=== PATIENT | female | born 1945 | race Caucasian/White ===

== ENCOUNTER 2018-05-01 11:39 | Outpatient (CLI) | payer MEDICARE, MEDICAID | END 2018-05-01 11:40 | disposition home or self-care (01) | LOC: BICMAMMO 11:39 | PROVIDERS: ATTEND Family Medicine | DX: Z12.31 Encounter for screening mammogram for malignant neoplasm of breast (principal); R92.1 Mammographic calcification found on diagnostic imaging of breast | CPT/HCPCS: 77063; 77067 ==

== ENCOUNTER 2018-07-13 10:29 | Outpatient (CLI) | payer MEDICARE, MEDICAID | END 2018-07-13 10:30 | disposition home or self-care (01) | LOC: RAD 10:29 → BICRAD 10:30 | PROVIDERS: ATTEND Family Medicine | DX: M25.561 Pain in right knee (principal); M25.562 Pain in left knee; E11.8 Type 2 diabetes mellitus with unspecified complications; R93.7 Abnormal findings on diagnostic imaging of other parts of musculoskeletal system | CPT/HCPCS: 36415; 80053; 80061; 82043; 83036; 85025 ==

== ENCOUNTER 2018-12-10 09:44 | Outpatient (CLI) | payer MEDICARE, MEDICAID ==
--- NOTE | 2018-12-10 11:10 | ULT ---
BILATERAL RENAL ULTRASOUND: History: 73-year-old female with UTI and hematuria. FINDINGS: The right kidney measures 9.7 cm in the length and the left kidney measures 10.8 cm in length. Cortic al echogenicity and thickness is normal. No focal mass, hydronephrosis, or shadowing calculus is seen . The urinary bladder is well distended and normal. IMPRESSION: Normal exam. POS: C
== END 2018-12-10 09:45 | disposition home or self-care (01) ==
LOC: BICULT 09:44
PROVIDERS: ATTEND Family Medicine
DX: R31.21 Asymptomatic microscopic hematuria (principal)
CPT/HCPCS: 76770

== ENCOUNTER 2019-04-08 08:34 | Outpatient (CLI) | payer MEDICARE, MEDICAID ==
--- NOTE | 2019-04-08 12:12 | CT ---
CT CHEST WITHOUT CONTRAST: Date: 04/08/19 COMPARISON: None. HISTORY: History of smoking for over 30 years. Cough and upper respiratory issues. TECHNIQUE: Multiple contiguous axial images were obtained in a CT of the chest without contrast per low dose [facility] screening protocol. Sagittal and coronal MIP reformats were performed. FINDINGS: There is a calcified granuloma in the inferior aspect of the right upper lobe. A 4 mm area of nodular ity extending to the periphery is seen on image 150 of 230 in the right middle lobe. An area of nodul arity measuring 3 mm in size is also seen in the right middle lobe on image 159 of 230. A 6 mm nodule is seen in the right lower lobe on image 165 of 230. There is a 6 mm nodule in the left lower lobe on image 150 of 230. A 2 mm nodule is seen in the lingu la on image 103 of 230. Emphysematous changes are seen in the lungs. No pneumothorax or pleural effus ion seen. The heart is normal in size4. Calcifications are seen in the coronal arteries and aorta. No hilar or mediastinal lymphadenopathy are seen. There are calcified right hilar lymph nodes. Degenerative changes are seen in the spine. There are calcifications in the spleen and liver from doug or granulomatous disease. The other visualized subdiaphragmatic structures are unremarkable. The ches t wall soft tissues are unremarkable. IMPRESSION: Scattered pulmonary nodules. There are 6 mm nodules in the bilateral lower lobes. Lung-RADS Category 2 - Benign findings. Annual continued low dose CT is recommended for continued screening. POS: TPC
== END 2019-04-08 08:35 | disposition home or self-care (01) ==
LOC: CT 08:34
PROVIDERS: ATTEND Family Medicine
DX: Z87.891 Personal history of nicotine dependence (principal); R91.8 Other nonspecific abnormal finding of lung field
CPT/HCPCS: G0297

== ENCOUNTER 2019-04-29 08:09 | Outpatient (CLI) | payer MEDICARE, MEDICAID ==
--- NOTE | 2019-04-29 08:41 | ULT ---
US Abdominal Aorta: 04/29/2019 12:00 AM CLINICAL HISTORY: Screening; abdominal bruit. STUDY: Limited abdominal ultrasound of the aorta. TECHNIQUE: A limited ultrasound of the abdominal aorta was performed. Spectral analysis of the Dopple r waveform was performed. COMPARISON: None. FINDINGS: The aorta is normal in caliber without evidence of aneurysmal dilatation and measures 1.7 cm in great est dimension. IMPRESSION: No evidence of abdominal aortic aneurysm.
== END 2019-04-29 08:10 | disposition home or self-care (01) ==
LOC: BICULT 08:09
PROVIDERS: ATTEND Family Medicine
DX: Z13.6 Encounter for screening for cardiovascular disorders (principal)
CPT/HCPCS: 76775

== ENCOUNTER 2020-09-15 10:17 | Outpatient (CLI) | payer MEDICARE, MEDICAID ==
--- NOTE | 2020-09-15 11:12 | CT ---
Exam: Noncontrast chest CT; CT lung scan low dose HISTORY:Nicotine dependence. Former smoker, quit 10 years ago. History of 3 packs per day for over 50 years. CABG. COPD. COMPARISON: 04/08/2019. TECHNIQUE: Low-dose screening lung CT is performed utilizing institutional protocol. FINDINGS: Lung screening specific (LUNG-RADS): Category 2. Benign. Right lung: Upper lobe: 0.4 cm solid nodule, unchanged. Middle lobe: Enlarged 0.9 cm solid nodule with faint calcification. Previously, this nodule measured 2.6 cm. Stable 0.4 cm solid nodule. Lower lobe: Stable 0.5 cm solid nodule. Left lung: Upper lobe: 0.5 cm solid nodule adjacent to scarring/atelectasis. Lower lobe: Stable 0.7 cm solid nodule in the left lower lobe. Stable 0.2 to 0.3 cm nodules in the po sterior left lower lobe. Potential significant incidentals (lung RADS category S): None. Pulmonary incidentals:Calcified granuloma in the right upper lobe. Mild emphysematous changes. Mild a telectasis. Other incidentals: Extensive coronary artery disease. Extensive calcification of the mitral annulus. Atherosclerosis of a nonaneurysmal aorta. Calcified right hilar lymph nodes are present. IMPRESSION: 1. Lung RADS 2. Benign. Multiple stable solid nodules. Some of these nodules have some faint calcific ations and may represent partially calcified granulomas. There is evidence of previous granulomatous disease with calcified right hilar lymph nodes as well as a large calcified granuloma i n the right lung. 2. Lung Rask category S: Negative. No new or unknown potential significant incidental findings requir ing urgent additional evaluation 3. Other incidentals as above. Recommendation: Continued routine annual low-dose lung screening CT. Follow-up in one year. Transcribed Date/Time: 09/15/2020 11:24 AM
== END 2020-09-15 10:18 | disposition home or self-care (01) ==
LOC: BICCT 10:17
PROVIDERS: ATTEND Family Medicine
DX: Z12.2 Encounter for screening for malignant neoplasm of respiratory organs (principal); Z87.891 Personal history of nicotine dependence; R91.8 Other nonspecific abnormal finding of lung field; D71 Functional disorders of polymorphonuclear neutrophils; J84.10 Pulmonary fibrosis, unspecified; I25.10 Atherosclerotic heart disease of native coronary artery without angina pectoris; I70.0 Atherosclerosis of aorta; J43.9 Emphysema, unspecified; J98.11 Atelectasis
CPT/HCPCS: G0297

== ENCOUNTER 2021-06-27 08:16 | Outpatient (CLI) | payer MEDICARE, MEDICAID | END 2021-06-27 08:17 | disposition home or self-care (01) | LOC: BICMAMMO 08:16 | PROVIDERS: ATTEND Family Medicine | DX: Z12.31 Encounter for screening mammogram for malignant neoplasm of breast (principal); Z91.89 Other specified personal risk factors, not elsewhere classified | CPT/HCPCS: 77063; 77067 ==

== ENCOUNTER 2021-09-18 16:31 | Outpatient (CLI) | payer MEDICARE, MEDICAID | END 2021-09-18 16:32 | disposition home or self-care (01) | LOC: BICRAD 16:31 | PROVIDERS: ATTEND Family Medicine | DX: J44.1 Chronic obstructive pulmonary disease with (acute) exacerbation (principal); R91.8 Other nonspecific abnormal finding of lung field | CPT/HCPCS: 71046 ==

== ENCOUNTER 2021-10-04 10:46 | Outpatient (CLI) | payer MEDICARE, MEDICAID | END 2021-10-04 10:47 | disposition home or self-care (01) | LOC: BICCT 10:46 | PROVIDERS: ATTEND Family Medicine | DX: Z12.2 Encounter for screening for malignant neoplasm of respiratory organs (principal); R91.8 Other nonspecific abnormal finding of lung field; Z87.891 Personal history of nicotine dependence | CPT/HCPCS: 71271 ==

== ENCOUNTER 2022-07-31 09:25 | Outpatient (CLI) | payer MEDICARE, MEDICAID | END 2022-07-31 09:26 | disposition home or self-care (01) | LOC: BICMAMMO 09:25 | PROVIDERS: ATTEND Family Medicine | DX: Z12.31 Encounter for screening mammogram for malignant neoplasm of breast (principal); N95.9 Unspecified menopausal and perimenopausal disorder; M85.89 Other specified disorders of bone density and structure, multiple sites; Z91.89 Other specified personal risk factors, not elsewhere classified | CPT/HCPCS: 77063; 77067; 77080 ==

== ENCOUNTER 2022-10-09 09:25 | Outpatient (CLI) | payer MEDICARE, MEDICAID | END 2022-10-09 09:26 | disposition home or self-care (01) | LOC: BICCT 09:25 | PROVIDERS: ATTEND Family Medicine | DX: Z12.2 Encounter for screening for malignant neoplasm of respiratory organs (principal); F17.211 Nicotine dependence, cigarettes, in remission; R91.8 Other nonspecific abnormal finding of lung field | CPT/HCPCS: 71271 ==

== ENCOUNTER 2023-06-25 10:28 | Outpatient (CLI) | payer MEDICARE, MEDICAID | END 2023-06-25 10:29 | disposition home or self-care (01) | LOC: RAD 10:28 | PROVIDERS: ATTEND Family Medicine | DX: R05.9 Cough, unspecified (principal); Z20.822 Contact with and (suspected) exposure to COVID-19 | CPT/HCPCS: 71046; 87635 ==

== ENCOUNTER 2023-08-13 10:56 | Outpatient (CLI) | payer MEDICARE, MEDICAID | END 2023-08-13 10:57 | disposition home or self-care (01) | LOC: BICMAMMO 10:56 | PROVIDERS: ATTEND Family Medicine | DX: Z12.31 Encounter for screening mammogram for malignant neoplasm of breast (principal); Z91.89 Other specified personal risk factors, not elsewhere classified | CPT/HCPCS: 77063; 77067 ==

== ENCOUNTER 2024-03-10 08:44 | Outpatient (CLI) | payer MEDICARE, MEDICAID | END 2024-03-10 08:45 | disposition home or self-care (01) | LOC: BICMRI 08:44 | PROVIDERS: ATTEND Family Medicine | DX: M47.26 Other spondylosis with radiculopathy, lumbar region (principal); M51.16 Intervertebral disc disorders with radiculopathy, lumbar region; M89.38 Hypertrophy of bone, other site; M48.061 Spinal stenosis, lumbar region without neurogenic claudication; M48.07 Spinal stenosis, lumbosacral region; M47.817 Spondylosis without myelopathy or radiculopathy, lumbosacral region; D18.09 Hemangioma of other sites; N28.9 Disorder of kidney and ureter, unspecified | CPT/HCPCS: 72148 ==